=== PATIENT | female | born 1950 | race Caucasian/White ===

== ENCOUNTER 2022-01-09 03:06 | Inpatient (IN) | payer MEDICARE ==
--- NOTE | 2022-01-09 03:35 | ED ---
Chest Pain HPI - General Chief Complaint: Cardiac Arrest/CPR Stated Complaint: Cardiac Time Seen by Provider: 01/09/22 03:17 Source: patient, RN/MD, EMS, RN notes reviewed Mode of arrival: EMS - History of Present Illness Initial Comments: This patient is 71-year-old woman who arrives is transferred here from [facility]. The patient had gone there to have evaluation of pain in the chest radiating to her left neck and her back. The pain had started around 7 PM. While the patient was being evaluated at the other hospital she was noted to have what appeared to be a junctional bradycardia. The patient transferred here to have further cardiac rule out and cardiology evaluation. When I interview the patient, the pain has decreased. She is not having any associated symptoms. No dyspnea, diaphoresis, nausea or vomiting, palpitations, lightheadedness or syncope. There was some initial mild shortness of breath that has resolved. MD Complaint: chest pain Onset/Timin -: hour(s) Onset: during rest Pain Location: substernal Pain Radiation: neck Severity: moderate Quality: aching, heaviness Consistency: constant Improves With: nothing Worsens With: nothing - Related Data Home Medications Medication Instructions Recorded Confirmed Calcium/Magnesium(Unknown) 1 tab PO DAILY 01/09/22 01/09/22 Cholecalciferol [Vitamin D3 (25 50 mcg PO DAILY 01/09/22 01/09/22 Mcg = 1000 Iu)] Gabapentin 600 mg PO TID 01/09/22 01/09/22 Losartan Potassium 100 mg PO DAILY 01/09/22 01/09/22 Omeprazole 40 mg PO DAILY 01/09/22 01/09/22 Simvastatin [Zocor] 40 mg PO HS@202901/09/22 01/09/22 Spironolactone [Aldactone] 75 mg PO DAILY 01/09/22 01/09/22 Zolpidem [Ambien] 10 mg PO HS 01/09/22 01/09/22 hydroCHLOROthiazide [Hydrodiuril] 25 mg PO Q48H 01/09/22 01/09/22 Allergies Allergy/AdvReac Type Severity Reaction Status Date / Time hydrocodone [From [place]] Allergy Anaphylaxis Verified 01/09/22 07:28 & Rash/Hives meloxicam Allergy Anaphylaxis Verified 01/09/22 07:28 & Rash/Hives Review of Systems ROS Statement: Those systems with pertinent positive or pertinent negative responses have been documented in the HPI. ROS Other: All systems not noted in ROS Statement are negative. Constitutional: Denies: fever, chills Respiratory: Reports: dyspnea. Denies: cough Cardiovascular: Reports: chest pain. Denies: palpitations, edema, syncope Gastrointestinal: Denies: abdominal pain, nausea, vomiting Genitourinary: Denies: dysuria, hematuria Musculoskeletal: Denies: back pain Skin: Denies: rash Neurological: Denies: headache, weakness EKG Findings - EKG Comments: EKG Findings:: ECG as interpreted as possibly atrial fibrillation with slow response, it may be a junctional rhythm with a small amount of variability. - EKG Results: EKG: interpreted by ERMD, normal ST/T EKG shows: bradycardia (Rate 44 bpm), atrial fibrillation - Blocks, [place], Hypertrophy, ST Abn: AV and intraventricular conduction: right bundle branch block (fixed /intermittent, complete/incomplete) (Incomplete) Past Medical History Past Medical History: Diabetes Mellitus, GERD/Reflux, Hyperlipidemia, Hypertension History of Any Multi-Drug Resistant Organisms: None Reported Past Surgical History: No Surgical Hx Reported Past Psychological History: Anxiety Smoking Status: Current every day smoker Past Alcohol Use History: Occasional, Rare Past Drug Use History: None Reported General Exam General appearance: alert, in no apparent distress Head exam: Present: atraumatic, normocephalic Eye exam: Present: normal appearance. Absent: scleral icterus, conjunctival injection Neck exam: Present: normal inspection, full ROM Respiratory exam: Present: normal lung sounds bilaterally. Absent: respiratory distress, wheezes, rales, rhonchi, stridor, accessory muscle use Cardiovascular Exam: Present: normal rhythm, bradycardia, normal heart sounds. Absent: systolic murmur, diastolic murmur, rubs, gallop GI/Abdominal exam: Present: soft. Absent: distended, tenderness, guarding, rebound, mass, pulsatile mass Extremities exam: Present: normal inspection, normal capillary refill. Absent: pedal edema, calf tenderness Back exam: Present: normal inspection. Absent: CVA tenderness (R), CVA tenderness (L) Neurological exam: Present: alert Skin exam: Present: warm, dry, intact, normal color. Absent: rash Course Vital Signs 01/09/22 01/09/22 01/09/22 03:10 03:18 04:00 Temperature 97.6 F Pulse Rate 46 L 42 L Pulse Rate [ 46 L Loading Supervisor ] Respiratory 16 16 Rate Blood Pressure 94/74 92/51 O2 Sat by Pulse 96 95 Oximetry 01/09/22 01/09/22 01/09/22 05:24 05:30 05:45 Temperature Pulse Rate 46 L 41 L 41 L Pulse Rate [ Loading Supervisor ] Respiratory 18 18 18 Rate Blood Pressure 79/44 81/42 91/56 O2 Sat by Pulse 96 Oximetry 01/09/22 01/09/22 01/09/22 06:23 06:31 06:38 Temperature Pulse Rate 48 L 41 L Pulse Rate [ Loading Supervisor ] Respiratory 19 20 20 Rate Blood Pressure 95/62 90/70 O2 Sat by Pulse 95 100 Oximetry Disposition Clinical Impression: Chest pain, Bradycardia Disposition: ADMITTED IP TO THIS HOSP Condition: Fair
[2022-01-09 04:06] LABS: Basophils # (A) 0.1 k/uL (0-0.2); Basophils % (A) 1 %; Eosinophils # (A) 0.2 k/uL (0-0.7); Eosinophils % (A) 2 %; HCT 40.6 % (34.0-46.0); HGB 13.1 gm/dL (11.4-16.0); Lymphocytes % (A) 35 %; MCH 30.7 pg (25.0-35.0); MCHC 32.4 g/dL (31.0-37.0); MCV 94.8 fL (80.0-100.0); Mean Platelet Volume 7.8; Monocytes # (A) 0.8 k/uL (0-1.0); Monocytes % (A) 7 %; Neutrophils # (A) 6.3 k/uL (1.3-7.7); Neutrophils % (A) 54 %; Platelet Count 290 k/uL (150-450); RBC 4.28 m/uL (3.80-5.40); RDW 12.5 % (11.5-15.5); WBC 11.7 k/uL (3.8-10.6)
[2022-01-09 04:26] LABS: INR 0.9 (<1.2); Partial Thromboplastin Time 23.4 sec (22.0-30.0); Prothrombin Time 10.4 sec (9.0-12.0)
[2022-01-09 04:45] LABS: ALT 62 U/L (4-34); AST 55 U/L (14-36); African American GFR (CKD) >90 (>60 ml/min/1.73 sqM); Albumin 3.2 g/dL (3.5-5.0); Alkaline Phosphatase 48 U/L (38-126); Anion Gap 3 mmol/L; Blood Urea Nitrogen 27 mg/dL (7-17); Calcium 8.1 mg/dL (8.4-10.2); Carbon Dioxide 23 mmol/L (22-30); Chloride 112 mmol/L (98-107); Glucose 119 mg/dL (74-99); Magnesium 1.9 mg/dL (1.6-2.3); Non-African American GFR(CKD) 83 (>60 ml/min/1.73 sqM); Potassium 4.6 mmol/L (3.5-5.1); Sodium 138 mmol/L (137-145); Total Bilirubin 0.5 mg/dL (0.2-1.3); Total Protein 5.6 g/dL (6.3-8.2)
[2022-01-09] MEDS ORDERED: NITROGLYCERIN SL TABS 0.4 MG TAB SUBLINGUAL PRN (05:15)
[2022-01-09] MEDS ORDERED: SODIUM CHLORIDE 0.9% 1,000 ML IV SCH ×2 (05:15→12:30)
[2022-01-09] MEDS ORDERED: SODIUM CHLORIDE 0.9% 500 ML 500 ML IV STA (05:44)
[2022-01-09] MEDS ORDERED: SODIUM CHLORIDE 0.9% 500 ML 500 ML IV ONE (05:49)
[2022-01-09] MEDS ORDERED: ACETAMINOPHEN TAB 325 MG TAB PO STA (06:15)
--- NOTE | 2022-01-09 08:02 | XR ---
EXAMINATION TYPE: XR chest 1V portable DATE OF EXAM: 01/09/2022 COMPARISON: CTA from outside institution HISTORY: Shortness of breath, chest pain TECHNIQUE: Single frontal view of the chest is obtained. FINDINGS: There is no focal air space opacity, pleural effusion, or pneumothorax seen. The cardiac silhouette size is within normal limits. Right-sided aortic arch is present. The osseous structures are intact. IMPRESSION: No acute process.
[2022-01-09] MEDS ORDERED: CALCIUM PO SCH (09:00)
[2022-01-09] MEDS ORDERED: MAGNESIUM PO SCH (09:00)
[2022-01-09] MEDS: LOSARTAN 50 MG TAB PO SCH (10:12)
[2022-01-09] MEDS: SPIRONOLACTONE 25 MG TAB PO SCH (10:13)
[2022-01-09] MEDS: PANTOPRAZOLE 40 MG TABLET PO SCH (10:34)
[2022-01-09] MEDS: CHOLECALCIFEROL 25 MCG (1000 IU) TABLET PO SCH (10:34)
[2022-01-09] MEDS: GABAPENTIN 300 MG CAP PO SCH ×3 (10:34→20:36)
[2022-01-09] MEDS: ACETAMINOPHEN TAB 325 MG TAB PO PRN ×2 (12:55→19:42)
--- NOTE | 2022-01-09 12:55 | P.CRDCN ---
History of Present Illness History of present illness: HISTORY OF PRESENT ILLNESS: This is a 71-year-old female with a past medical history significant for hypertension, hyperlipidemia, and nicotine dependence. Patient follows in the office with Dr. Rincon. We have been asked to see the patient in consultation for bradycardia. Patient examined at the bedside. Patient states yesterday she was sitting in her living room and she started having some chest pain, neck pain, and dizziness. She got up to go get her in the other room. She reports she then started having some discomfort in her back and broke out into a sweat. She denied any nausea or vomiting. The patient initially went to [facility] and was found to be bradycardic with a heart rate in the 30s and 40s. She was transferred to [facility] for further evaluation. EKG completed upon arrival revealed junctional rhythm with a heart rate in the 40s. Telemetry currently reveals sinus mechanism with a heart rate in the 60s to 70s. The patient was also found to be hypotensive at [facility] with a blood pressure in the 80s. * EKG reveals junctional rhythm * Chest xray negative for acute process * Laboratory data: WBC 11.7. Platelet Count 290. Sodium 138. Potassium 4.6. BUN 27. Creatinine 0.73. Magnesium 1.9. Troponin negative 3. AST 55. ALT 62. * Current home cardiac medications include chlorothiazide 25 mg every 48 hours, Aldactone 75 mg daily, simvastatin 40 mg at night, losartan 100 mg daily * Patient had an echocardiogram performed in April 2021 revealing normal EF, mild TR, mild MR * Patient underwent Lexiscan stress test in August 2021 which was negative for ischemia REVIEW OF SYSTEMS: At the time of my exam: CONSTITUTIONAL: Denies fever or chills. HEENT: Denies blurred vision, vision changes, or eye pain. Denies hemoptysis CARDIOVASCULAR: Denies chest pain. Denies orthopnea. Denies PND. Denies palpitations RESPIRATORY: Denies shortness of breath. GASTROINTESTINAL: Denies abdominal pain. Denies nausea or vomiting. HEMATOLOGIC: Denies bleeding disorders. GENITOURINARY: Denies any blood in urine. SKIN: Denies pruitis. Denies rash. PHYSICAL EXAM: VITAL SIGNS: Reviewed. GENERAL: Well-developed in no acute distress. HEENT: Head is normocephalic. Pupils are equal, round. Sclerae anicteric. Mucous membranes of the mouth are moist. Neck supple. No JVD or thyromegaly LUNGS: Respirations even and unlabored. Lungs essentially clear to auscultation bilaterally. HEART: Regular rate and rhythm. S1 and S2 heard. ABDOMEN: Soft. Nondistended. Nontender. EXTREMITIES: Normal range of motion. No clubbing or cyanosis. Peripheral pulses intact. No lower extremity edema NEUROLOGIC: Awake and alert. Oriented x 3. ASSESSMENT: Chest pain, troponin negative x 3 Junctional rhythm, symptomatic Hypotension Elevated LFTs, suspect secondary to hypoperfusion History of hypertension Hyperlipidemia Nicotine dependence PLAN: Obtain 2-D echo to assess cardiac structure and function Avoid AV carlo blocking agents Continue telemetry monitoring Check TSH Patient will likely require permanent pacemaker insertion. Timing to be determined Further recommendations pending patient course Nurse practitioner note has been reviewed by physician. Signing provider agrees with the documented findings, assessment, and plan of care. Past Medical History Past Medical History: Diabetes Mellitus, GERD/Reflux, Hyperlipidemia, Hyperte nsion History of Any Multi-Drug Resistant Organisms: None Reported Past Surgical History: No Surgical Hx Reported Past Psychological History: Anxiety Smoking Status: Current every day smoker Past Alcohol Use History: Occasional, Rare Past Drug Use History: None Reported - Past Family History Father Family Medical History: Diabetes Mellitus, Myocardial Infarction ([place]) Mother Family Medical History: Renal Disease Medications and Allergies Home Medications Medication Instructions Recorded Confirmed Type Calcium/Magnesium(Unknown) 1 tab PO DAILY 01/09/22 01/09/22 History Cholecalciferol [Vitamin D3 (25 50 mcg PO DAILY 01/09/22 01/09/22 History Mcg = 1000 Iu)] Gabapentin 600 mg PO TID 01/09/22 01/09/22 History Losartan Potassium 100 mg PO DAILY 01/09/22 01/09/22 History Omeprazole 40 mg PO DAILY 01/09/22 01/09/22 History Simvastatin [Zocor] 40 mg PO HS@202901/09/22 01/09/22 History Spironolactone [Aldactone] 75 mg PO DAILY 01/09/22 01/09/22 History Zolpidem [Ambien] 10 mg PO HS 01/09/22 01/09/22 History hydroCHLOROthiazide [Hydrodiuril] 25 mg PO Q48H 01/09/22 01/09/22 History Allergies Allergy/AdvReac Type Severity Reaction Status Date / Time hydrocodone [From [place]] Allergy Anaphylaxis Verified 01/09/22 07:28 & Rash/Hives meloxicam Allergy Anaphylaxis Verified 01/09/22 07:28 & Rash/Hives Physical Exam Vitals: Vital Signs Temp Pulse Pulse Resp BP Pulse Ox 01/09/22 06:38 41 L 20 90/70 100 01/09/22 06:31 20 01/09/22 06:23 48 L 19 95/62 95 01/09/22 05:45 41 L 18 91/56 01/09/22 05:30 41 L 18 81/42 01/09/22 05:24 46 L 18 79/44 96 01/09/22 04:00 42 L 16 92/51 95 01/09/22 03:18 46 L 01/09/22 03:10 97.6 F 46 L 16 94/74 96 Intake and Output 01/08/22 01/09/22 01/09/22 22:59 06:59 14:59 Other: Weight 75.75 kg Results 01/09/22 03:15 01/09/22 03:15 Cardiac Enzymes 01/09/22 01/09/22 01/09/22 Range/Units 03:15 03:15 05:41 AST 55 H (14-36) U/L Troponin I 0.025 0.027 (0.000-0.034) ng/mL Coagulation 01/09/22 Range/Units 03:15 PT 10.4 (9.0-12.0) sec APTT 23.4 (22.0-30.0) sec CBC 01/09/22 Range/Units 03:15 WBC 11.7 H (3.8-10.6) k/uL RBC 4.28 (3.80-5.40) m/uL Hgb 13.1 (11.4-16.0) gm/dL Hct 40.6 (34.0-46.0) % Plt Count 290 (150-450) k/uL Comprehensive Metabolic Panel 01/09/22 Range/Units 03:15 Sodium 138 (137-145) mmol/L Potassium 4.6 (3.5-5.1) mmol/L Chloride 112 H (98-107) mmol/L Carbon Dioxide 23 (22-30) mmol/L BUN 27 H (7-17) mg/dL Creatinine 0.73 (0.52-1.04) mg/dL Glucose 119 H (74-99) mg/dL Calcium 8.1 L (8.4-10.2) mg/dL AST 55 H (14-36) U/L ALT 62 H (4-34) U/L Alkaline Phosphatase 48 (38-126) U/L Total Protein 5.6 L (6.3-8.2) g/dL Albumin 3.2 L (3.5-5.0) g/dL Current Medications Generic Name Dose Route Start Last Admin Trade Name Freq PRN Reason Stop Dose Admin Aspirin 325 mg 01/10/22 09:00 Aspirin 325 Mg Tab PO DAILY EBONY Sodium Chloride 1,000 mls @ 100 mls/hr 01/09/22 05:15 01/09/22 06:25 Saline 0.9% IV 100 mls/hr .Q10H EBONY Administration Nitroglycerin 0.4 mg 01/09/22 05:15 Nitroglycerin Sl Tabs 0.4 Mg Tab SUBLINGUAL Q5M PRN Chest Pain Intake and Output 01/08/22 01/09/22 01/09/22 22:59 06:59 14:59 Other: Weight 75.75 kg 01/09/22 03:15 01/09/22 03:15
[2022-01-09 13:01] LABS: T4, Free (Free Thyroxine) 0.99 ng/dL (0.78-2.19)
[2022-01-09] MEDS: SODIUM CHLORIDE 0.9% 1,000 ML IV SCH (14:57)
[2022-01-09 16:46] LABS: Glucose,Whole Blood 128 mg/dL (75-99)
[2022-01-09 20:21] LABS: Glucose,Whole Blood 137 mg/dL (75-99)
[2022-01-09] MEDS: ATORVASTATIN 20 MG TAB PO SCH (20:36)
[2022-01-09] MEDS ORDERED: ZOLPIDEM 10 MG TAB PO SCH (21:00)
[2022-01-10 06:18] LABS: Glucose,Whole Blood 111 mg/dL (75-99)
[2022-01-10] MEDS: ACETAMINOPHEN TAB 325 MG TAB PO PRN ×2 (06:46→21:02)
[2022-01-10] MEDS: CHOLECALCIFEROL 25 MCG (1000 IU) TABLET PO SCH (06:46)
[2022-01-10] MEDS: GABAPENTIN 300 MG CAP PO SCH ×3 (06:47→21:03)
[2022-01-10] MEDS: PANTOPRAZOLE 40 MG TABLET PO SCH (06:47)
[2022-01-10] MEDS: LOSARTAN 50 MG TAB PO SCH (06:47)
[2022-01-10] MEDS: SPIRONOLACTONE 25 MG TAB PO SCH (06:55)
[2022-01-10] MEDS ORDERED: ceFAZolin 1 GM in SODIUM CHLORIDE 0.9% IRRIG BTL 250 ML IRRIGATION PRN (07:00)
[2022-01-10] MEDS ORDERED: hydroCHLOROthiazide 25 MG TAB PO SCH (09:00)
[2022-01-10] MEDS ORDERED: ASPIRIN 325 MG TAB PO SCH (09:00)
[2022-01-10 09:07] LABS: Chol/HDL Ratio 3.95 Ratio; LDL Cholesterol,Calculated 60.8 mg/dL (0.0-131.0)
[2022-01-10 11:05] LABS: African American GFR (CKD) >90 (>60 ml/min/1.73 sqM); Anion Gap 2 mmol/L; Blood Urea Nitrogen 12 mg/dL (7-17); Calcium 8.9 mg/dL (8.4-10.2); Carbon Dioxide 26 mmol/L (22-30); Chloride 113 mmol/L (98-107); Glucose 94 mg/dL (74-99); Non-African American GFR(CKD) >90 (>60 ml/min/1.73 sqM); Sodium 141 mmol/L (137-145)
[2022-01-10] MEDS ORDERED: IV FLUID CONTINUATION 1,000 ML IV ONE (11:45)
[2022-01-10] MEDS ORDERED: PROPOFOL 10 MG/ML 20 ML VIAL IV ONE (11:56)
[2022-01-10] MEDS ORDERED: fentaNYL (PF) 50 MCG/ML 2 ML AMP ONE (11:56)
[2022-01-10] MEDS ORDERED: MIDAZOLAM 2 MG/2 ML VIAL ONE (11:56)
[2022-01-10] MEDS ORDERED: IOPAMIDOL-370 50ML BTL INJ ONE (12:00)
[2022-01-10] MEDS ORDERED: LIDOCAINE 1% INJ 10MG/ML (20 ML MDV) SQ ONE (12:34)
--- NOTE | 2022-01-10 12:52 | P.PN ---
Subjective Progress Note Date: 01/10/22 The patient is a 71-year-old female who follows with Dr. Colon outpatient in [place]. She presented to her local emergency room after an episode of dizziness with associated chest discomfort and diaphoresis. On arrival to the emergency room she was noted to have a junctional heart rhythm and was hyp otensive. She was reperfused and transferred to [place]. Dr. Galvez had a long discussion with both the patient and her regarding the need for pacemaker implantation. Risks of procedure were explained in detail. No additional questions thereafter. This will be performed later today. The patient is currently resting comfortably in bed. No chest pain or chest pressure. No difficulty breathing. No dizziness or lightheadedness. GENERAL: Well-appearing, well-nourished and in no acute distress. NECK: Supple without JVD or thyromegaly. LUNGS: Breath sounds clear to auscultation bilaterally. Respiration equal and unlabored. No wheezes, rales or rhonchi. HEART: Regular rate and rhythm without murmurs, rubs or gallops. S1 and S2 heard. EXTREMITIES: Normal range of motion, no edema. No clubbing or cyanosis. Peripheral pulses intact and strong. VITALS: Blood pressure 128/71, pulse 76, respiratory rate 18, temp 97.9F, SpO2 95% on room air TELEMETRY: Sinus rhythm LABS: Sodium 141, potassium 4.0, BUN 12, creatinine 0.61, TSH 0.17, triglycerides 185, LDL 60, HDL 33 IMPRESSION: Acute onset of dizziness Junctional rhythm, on EKG and [facility] Hypotension, improved Elevated LFTs History of hypertension Dyslipidemia Current smoker Abnormal TSH at 0.17, T4 0.99 PLAN: Proceed with dual chamber pacemaker implant Further recommendations will be based upon clinical course I am dictating on behalf of Dr Anibal Galvez's history/physical and assessment/plan. Objective - Vital Signs Vital signs: Vital Signs Temp 98.2 F 01/10/22 08:40 Pulse 81 01/10/22 08:40 Resp 16 01/10/22 08:40 BP 132/79 01/10/22 08:40 Pulse Ox 94 L 01/10/22 08:40 Intake & Output 01/09/22 01/10/22 01/10/22 18:59 06:59 18:59 Intake Total 10 Balance 10 Weight 75.75 kg Intake: IV 10 Invasive Line 1 10 Other: Voiding Method Toilet Toilet # Voids 1 - Labs CBC & Chem 7: 01/09/22 03:15 01/10/22 10:44 Labs: Abnormal Lab Results - Last 24 Hours (Table) 01/09/22 01/09/22 01/09/22 Range/Units 03:15 16:44 20:16 POC Glucose (mg/dL) 128 H 137 H (75-99) mg/dL Triglycerides (0.00-149.00) mg/dL HDL Cholesterol (40.00-60.00) mg/dL TSH 0.171 L (0.465-4.680) mIU/L 01/10/22 01/10/22 Range/Units 04:29 06:17 POC Glucose (mg/dL) 111 H (75-99) mg/dL Triglycerides 185.00 H (0.00-149.00) mg/dL HDL Cholesterol 33.20 L (40.00-60.00) mg/dL TSH (0.465-4.680) mIU/L
[2022-01-10] MEDS ORDERED: ACETAMINOPHEN TAB 325 MG TAB PO PRN (14:00)
--- NOTE | 2022-01-10 14:08 | P.EPPROC ---
- EP Procedure Note Electrophysiology Procedure Note: Diagnosis Symptomatic, intermittent junctional rhythm at 40 beats a minute associated with hypotension hypoperfusion No AV node blocking drugs, no transient causes Procedure Dual-chamber pacemaker implantation Left upper extremity venogram Details Patient was brought to the EP lab in a fasting state. Written informed consent was obtained prior to the procedure. Conscious sedation provided by anesthesia team Left upper extremity venogram was performed 10 mL every dye injected in the left arm. Patent left subclavian and axillary veins Plan to proceed with a dual-chamber pacemaker IV antibiotics administered. Local anesthesia administered. A 4 cm incision made in the pectoral area. Subfascial pocket made. Venous access obtained Venous sheaths placed. Leads placed in the right heart Atrial lead position the right atrial appendage. [facility] medical doctor screwed in right atrial appendage P waves 1.7 mV, pacing threshold 1 warted 0.4 ms pacing impedance 650 ohms 10 V test negative RV lead position in the RV septum. Pacing threshold 1 warted 0.4 ms, R waves greater than 12 mV and pacing impedance 650 ohms [address] [facility] medical Dual-chamber pacemaker device connected to the leads and placed in the subfascial pocket Patient tolerance the procedure well without acute complications Programming: DDD, 50 beats a minute, VIP mode to minimize RV pacing Patient tolerated the procedure well without any acute complications
--- NOTE | 2022-01-10 14:24 | CA ---
Transthoracic Echo Report Name: Julia Coleman Age: 71 Gender: F : 1950 Exam Date: 01/09/2022 11:28 Exam Location: [facility] Ht (in): 65 Wt (lb): 167 Ordering Physician: Katty Morales Attending/Referring Phys: [id number], Carmen Safety Trainer Coretta Escobar, JOSE Procedure CPT: Indications: LV function Cardiac Hx: Technical Quality: Fair Contrast 1: Total Dose (mL): Contrast 2: Total Dose (mL): MEASUREMENTS (Male / Female) Normal Values 2D ECHO LV Diastolic Diameter PLAX 4.2 cm 4.2 - 5.9 / 3.9 - 5.3 cm LV Systolic Diameter PLAX 2.2 cm IVS Diastolic Thickness 1.1 cm 0.6 - 1.0 / 0.6 - 0.9 cm LVPW Diastolic Thickness 1.0 cm 0.6 - 1.0 / 0.6 - 0.9 cm LV Relative Wall Thickness 0.5 RV Internal Dim ED PLAX 2.9 cm LA Systolic Diameter LX 3.6 cm 3.0 - 4.0 / 2.7 - 3.8 cm M-MODE Aortic Root Diameter MM 3.0 cm MV E Point Septal Separation 0.6 cm AV Cusp Separation MM 1.7 cm DOPPLER AV Peak Velocity 162.2 cm/s AV Peak Gradient 10.5 mmHg MV Area PHT 3.8 cm Mitral E Point Velocity 113.3 cm/s Mitral A Point Velocity 84.7 cm/s Mitral E to A Ratio 1.3 MV Deceleration Time 197.6 ms FINDINGS Left Ventricle Left ventricular ejection fraction is estimated at 55-60 %. Mildly increased septal wall thickness. Mildly increased posterior wall thickness. Right Ventricle Normal right ventricular size and function. Right Atrium Normal right atrial size. Left Atrium Normal left atrial size. Mitral Valve Trace mitral regurgitation Aortic Valve Trileaflet aortic valve. No aortic valve stenosis or regurgitation. Tricuspid Valve Trace tricuspid regurgitation. Pulmonic Valve Structurally normal pulmonic valve. Pericardium No pericardial effusion. Aorta Normal size aortic root and proximal ascending aorta. CONCLUSIONS Preserved LV size and systolic function. No significant valvular abnormalities noted Previewed by: dia Galvez MD (Electronically Signed) Final Date: 10 January 2022 14:22
[2022-01-10 14:28] LABS: Glucose,Whole Blood 82 mg/dL (75-99)
[2022-01-10] MEDS ORDERED: ACETAMINOPHEN IV (For NPO) 1,000 MG in EMPTY BAG 1 BAG IVPB ONE (15:00)
[2022-01-10 16:24] LABS: Glucose,Whole Blood 127 mg/dL (75-99)
--- NOTE | 2022-01-10 18:28 | XR ---
EXAMINATION TYPE: XR chest 1V portable DATE OF EXAM: 01/10/2022 COMPARISON: 01/09/2022 HISTORY: Chest pain TECHNIQUE: Single view FINDINGS: Heart is normal. Lungs are clear of consolidation. There are no hilar masses. There is left axillary pacemaker. There is possible right-sided aortic arch. There is no pleural effusion. IMPRESSION: No active cardiopulmonary disease. No change.
[2022-01-10] MEDS: SODIUM CHLORIDE 0.9% 1,000 ML IV SCH (18:38)
[2022-01-10 19:42] LABS: Glucose,Whole Blood 126 mg/dL (75-99)
[2022-01-10] MEDS ORDERED: ZOLPIDEM 5 MG TAB PO SCH (21:00)
[2022-01-10] MEDS: ATORVASTATIN 20 MG TAB PO SCH (21:02)
--- NOTE | 2022-01-10 22:15 | P.HPIM ---
History of Present Illness H&P Date: 01/09/22 Chief Complaint: Dizziness Patient is a 71-year-old female with a known history of hypertension, hyperlipidemia, diabetes type 2, anxiety and currently everyday smoker presents to ER due to complaints of dizziness and chest pain. Patient initially presented to [facility]. She was found to be hypotensive with SBP in 80s and also bradycardic. Patient was transferred to [facility] for cardiology evaluation. Patient states that she was sitting in her living room and started having dizziness and chest pain. Patient got up to get her in the other room and reports started having discomfort in her back and broke out into a sweat. Denies any complaints of nausea or vomiting. EKG showed junctional rhythm with heart rate of 40s. Chest x-ray showed no acute cardiopulmonary process. Laboratory data showed WBC 11.7 hemoglobin 13.1 and platelets 290 INR 0.9 Sodium 138 potassium 4.6 chloride 112 bicarb is 23 BUN 27 creatinine 0.73 blood sugar is 119 Calcium 8.1 AST 55 ALT 62 and alk phos 48 troponin x3 negative and TSH 0.171 and free T4 l evel is 0.99 and albumin 3.2 Review of Systems Constitutional: Patient denies any fever or chills . No generalized weakness or weight loss. Abdomen: Patient denied nausea vomiting and diarrhea and abdominal pain. Cardiovascular: Patient denies any chest pain or short of breath no palpitations. Respiratory: patient denied any cough or sputum production. No shortness of breath Neurologic: Patient denied any numbness or tingling headache. Musculoskeletal: Patient denies any complaints of joint swelling or deformity. Skin: Negative Psychiatric: Negative Endocrine: No heat or cold intolerance. No recent weight gain. Genitourinary: No dysuria or hematuria. All other 14 point ROS negative except the above Past Medical History Past Medical History: Diabetes Mellitus, GERD/Reflux, Hyperlipidemia, Hypertension Additional Past Medical History / Comment(s): Occasional low back pain, diveticular disease, benign colon polyp, insomnia, past kidney stone History of Any Multi-Drug Resistant Organisms: None Reported Past Surgical History: No Surgical Hx Reported Additional Past Surgical History / Comment(s): Cardiac cath several years ago/normal, bilateral total knee arthroplasties, colonoscopy/polypectomy, hemorrhoidectomy Past Anesthesia/Blood Transfusion Reactions: No Reported Reaction Past Psychological History: Anxiety Smoking Status: Current every day smoker Past Alcohol Use History: Occasional, Rare Past Drug Use History: None Reported - Past Family History Father Family Medical History: Diabetes Mellitus, Myocardial Infarction ([place]) Mother Family Medical History: Renal Disease Medications and Allergies Home Medications Medication Instructions Recorded Confirmed Type Calcium/Magnesium(Unknown) 1 tab PO DAILY 01/09/22 01/09/22 History Cholecalciferol [Vitamin D3 (25 50 mcg PO DAILY 01/09/22 01/09/22 History Mcg = 1000 Iu)] Gabapentin 600 mg PO TID 01/09/22 01/09/22 History Losartan Potassium 100 mg PO DAILY 01/09/22 01/09/22 History Omeprazole 40 mg PO DAILY 01/09/22 01/09/22 History Simvastatin [Zocor] 40 mg PO HS@202901/09/22 01/09/22 History Spironolactone [Aldactone] 75 mg PO DAILY 01/09/22 01/09/22 History Zolpidem [Ambien] 10 mg PO HS 01/09/22 01/09/22 History hydroCHLOROthiazide [Hydrodiuril] 25 mg PO Q48H 01/09/22 01/09/22 History Allergies Allergy/AdvReac Type Severity Reaction Status Date / Time hydrocodone [From [place]] Allergy Anaphylaxis Verified 01/09/22 07:28 & Rash/Hives meloxicam Allergy Anaphylaxis Verified 01/09/22 07:28 & Rash/Hives Physical Exam Vitals: Vital Signs Temp Pulse Pulse Resp BP BP Pulse Ox 01/10/22 08:40 98.2 F 81 16 132/79 94 L 01/10/22 04:00 97.8 F 89 16 131/69 97 01/10/22 00:00 97.8 F 73 16 104/64 98 01/09/22 20:00 97.9 F 78 18 112/69 95 01/09/22 17:44 74 18 01/09/22 17:33 74 18 110/64 99 01/09/22 15:53 97.6 F 80 16 104/69 96 01/09/22 12:25 75 18 115/65 95 01/09/22 10:36 68 18 114/73 98 Intake and Output 01/09/22 01/10/22 01/10/22 22:59 06:59 14:59 Intake Total 10 Balance 10 Intake: IV 10 Invasive Line 1 10 Other: Voiding Method Toilet Toilet # Voids 1 1 PHYSICAL EXAMINATION: Patient is lying in the bed comfortably, no acute distress, awake alert and oriented.. HEENT: Normocephalic. Neck is supple. Pupils reactive. Nostrils clear. Oral cavity is moist. Neck reveals no JVD, carotid bruits, or thyromegaly. CHEST EXAMINATION: Trachea is central. Symmetrical expansion. Lung huff clear to auscultation and percussion. CARDIAC: Normal S1, S2 with no gallops. No murmurs ABDOMEN: Soft. Bowel sounds normal. No organomegaly. No abdominal bruits. Extremities: reveal no edema. No clubbing or cyanosis Neurologically awake, alert, oriented x3 with well-coordinated movements. No focal deficits noted Skin: No rash or skin lesions. Psychiatric: Cooperative. Nonsuicidal Musculoskeletal: No joint swelling or deformity. Normal range of motion. Results CBC & Chem 7: 01/09/22 03:15 01/10/22 10:44 Labs: Abnormal Lab Results - Last 24 Hours (Table) 01/09/22 01/09/22 01/09/22 Range/Units 03:15 16:44 20:16 POC Glucose (mg/dL) 128 H 137 H (75-99) mg/dL Triglycerides (0.00-149.00) mg/dL HDL Cholesterol (40.00-60.00) mg/dL TSH 0.171 L (0.465-4.680) mIU/L 01/10/22 01/10/22 Range/Units 04:29 06:17 POC Glucose (mg/dL) 111 H (75-99) mg/dL Triglycerides 185.00 H (0.00-149.00) mg/dL HDL Cholesterol 33.20 L (40.00-60.00) mg/dL TSH (0.465-4.680) mIU/L Thrombosis Risk Factor Assmnt - DVT/VTE Prophylaxis DVT/VTE Prophylaxis: Mechanical Prophylaxis ordered - Choose All That Apply Any of the Below Risk Factors Present?: Yes Each Factor Represents 1 point: Obesity (BMI >25) Other Risk Factors: Yes Each Risk Factor Represents 2 Points: Age 61-74 years Other congenital or acquired thrombophilia - If yes, enter type in comment: No Thrombosis Risk Factor Assessment Total Risk Factor Score: 3 Thrombosis Risk Factor Assessment Level: Moderate Risk Assessment and Plan Assessment: Bradycardia with junctional rhythm Dizziness likely secondary to above Chest pain. Ruled out ACS. Hypertension Hyperlipidemia Diabetes type 2 diet controlled Anxiety Current everyday smoker DVT prophylaxis with SCDs Plan: Patient will be current on telemetry monitoring. Avoid AV carlo blocking agents. TSH is low but free T4 within normal limits. Cardiology is planning for pacemaker placement. Smoking cessation has been counseled extensively. Blood pressure improved with IV hydration. Time with Patient: Greater than 30
--- NOTE | 2022-01-10 22:15 | P.PN ---
Subjective Progress Note Date: 01/10/22 Patient is a 71-year-old female with a known history of hypertension, hyperlipidemia, diabetes type 2, anxiety and currently everyday smoker presents to ER due to complaints of dizziness and chest pain. Patient initially presented to [facility]. She was found to be hypotensive with SBP in 80s and also bradycardic. Patient was transferred to [facility] for cardiology evaluation. Patient states that she was sitting in her living room and started having dizziness and chest pain. Patient got up to get her in the other room and reports started having discomfort in her back and broke out into a sweat. Denies any complaints of nausea or vomiting. EKG showed junctional rhythm with heart rate of 40s. Chest x-ray showed no acute cardiopulmonary process. Laboratory data showed WBC 11.7 hemoglobin 13.1 and platelets 290 INR 0.9 Sodium 138 potassium 4.6 chloride 112 bicarb is 23 BUN 27 creatinine 0.73 blood sugar is 119 Calcium 8.1 AST 55 ALT 62 and alk phos 48 troponin x3 negative and TSH 0.171 and free T4 level is 0.99 and albumin 3.2 01/10/2022 Patient is currently resting in bed comfortably. No complaints of chest pain or shortness of breath. Status post dual-chamber pacemaker placement. Postoperative day 0 No nausea vomiting abdominal diarrhea. Blood pressure is 132/79. No complaints of dizziness or lightheadedness. Laboratory data reviewed. Troponin x3 negative. Cardiology is on board. Current medications reviewed. Objective - Vital Signs Vital signs: Vital Signs Temp 97.9 F 01/10/22 11:30 Pulse 82 01/10/22 17:55 Resp 16 01/10/22 14:55 BP 123/78 01/10/22 17:55 Pulse Ox 95 01/10/22 17:55 Intake & Output 01/10/22 01/10/22 01/11/22 06:59 18:59 06:59 Intake Total 10 768 Balance 10 768 Intake: IV 10 650 Invasive Line 1 10 Oral 118 Other: Voiding Method Toilet Toilet # Voids 1 1 - Exam PHYSICAL EXAMINATION: Patient is lying in the bed comfortably, no acute distress, awake alert and oriented.. HEENT: Normocephalic. Neck is supple. Pupils reactive. Nostrils clear. Oral cavity is moist. Neck reveals no JVD, carotid bruits, or thyromegaly. CHEST EXAMINATION: Trachea is central. Symmetrical expansion. Lung huff clear to auscultation and percussion. CARDIAC: Normal S1, S2 with no gallops. No murmurs ABDOMEN: Soft. Bowel sounds normal. No organomegaly. No abdominal bruits. Extremities: reveal no edema. No clubbing or cyanosis Neurologically awake, alert, oriented x3 with well-coordinated movements. No focal deficits noted Skin: No rash or skin lesions. Psychiatric: Cooperative. Nonsuicidal Musculoskeletal: No joint swelling or deformity. Normal range of motion. - Labs CBC & Chem 7: 01/09/22 03:15 01/10/22 10:44 Labs: Abnormal Lab Results - Last 24 Hours (Table) 01/10/22 01/10/22 01/10/22 Range/Units 04:29 06:17 10:44 Chloride 113 H (98-107) mmol/L POC Glucose (mg/dL) 111 H (75-99) mg/dL Triglycerides 185.00 H (0.00-149.00) mg/dL HDL Cholesterol 33.20 L (40.00-60.00) mg/dL 01/10/22 01/10/22 Range/Units 16:22 19:40 Chloride (98-107) mmol/L POC Glucose (mg/dL) 127 H 126 H (75-99) mg/dL Triglycerides (0.00-149.00) mg/dL HDL Cholesterol (40.00-60.00) mg/dL Assessment and Plan Assessment: Bradycardia with junctional rhythm Dizziness and hypotension likely secondary to above Chest pain. Ruled out ACS. Hypertension Hyperlipidemia Diabetes type 2 diet controlled Anxiety Current everyday smoker DVT prophylaxis with SCDs Plan: Patient will be current on telemetry monitoring. Avoid AV carlo blocking agents. TSH is low but free T4 within normal limits. s/p pacemaker placement. Smoking cessation has been counseled extensively. Blood pressure improved with IV hydration. Time with Patient: Greater than 30
[2022-01-11 06:30] LABS: Glucose,Whole Blood 97 mg/dL (75-99)
[2022-01-11 07:48] LABS: Basophils # (A) 0.1 k/uL (0-0.2); Basophils % (A) 1 %; Eosinophils # (A) 0.2 k/uL (0-0.7); Eosinophils % (A) 2 %; HCT 39.8 % (34.0-46.0); HGB 13.2 gm/dL (11.4-16.0); Lymphocytes % (A) 20 %; MCH 31.1 pg (25.0-35.0); MCHC 33.1 g/dL (31.0-37.0); MCV 94.1 fL (80.0-100.0); Mean Platelet Volume 7.3; Monocytes # (A) 0.7 k/uL (0-1.0); Monocytes % (A) 7 %; Neutrophils # (A) 6.9 k/uL (1.3-7.7); Neutrophils % (A) 68 %; Platelet Count 262 k/uL (150-450); RBC 4.23 m/uL (3.80-5.40); RDW 12.3 % (11.5-15.5); WBC 10.1 k/uL (3.8-10.6)
[2022-01-11 07:57] LABS: African American GFR (CKD) >90 (>60 ml/min/1.73 sqM); Anion Gap 3 mmol/L; Blood Urea Nitrogen 13 mg/dL (7-17); Calcium 8.6 mg/dL (8.4-10.2); Carbon Dioxide 27 mmol/L (22-30); Chloride 110 mmol/L (98-107); Glucose 127 mg/dL (74-99); Non-African American GFR(CKD) 89 (>60 ml/min/1.73 sqM); Potassium 3.9 mmol/L (3.5-5.1); Sodium 140 mmol/L (137-145)
[2022-01-11] MEDS: LOSARTAN 50 MG TAB PO SCH (09:29)
[2022-01-11] MEDS: SPIRONOLACTONE 25 MG TAB PO SCH (09:29)
[2022-01-11] MEDS: ACETAMINOPHEN TAB 325 MG TAB PO PRN (09:29)
[2022-01-11] MEDS: CHOLECALCIFEROL 25 MCG (1000 IU) TABLET PO SCH (09:30)
[2022-01-11] MEDS: GABAPENTIN 300 MG CAP PO SCH (09:30)
[2022-01-11] MEDS: PANTOPRAZOLE 40 MG TABLET PO SCH (09:31)
[2022-01-11 12:03] VITALS: BP 132/79; PULSE 72; RESP 16; TEMP 98.3
[2022-01-11 12:10] LABS: Glucose,Whole Blood 91 mg/dL (75-99)
--- NOTE | 2022-01-11 12:24 | P.PN ---
Subjective Progress Note Date: 01/11/22 The patient is a 71-year-old female who follows with Dr. Colon outpatient in [place]. She presented to her local emergency room after an episode of dizziness with associated chest discomfort and diaphoresis. On arrival to the emergency room she was noted to have a junctional heart rhythm and was hyp otensive. She was reperfused and transferred to [facility]. The patient underwent dual-chamber pacemaker implantation on 01/10/2022. Device interrogation showed good lead measurements. The patient was interviewed and examined lying comfortably in bed. She states she tolerated her procedure well. She states she did have some nausea yesterday, however it has resolved this morning. No chest pain or chest pressure. No difficulty breathing. No dizziness or lightheadedness. GENERAL: Well-appearing, well-nourished and in no acute distress. NECK: Supple without JVD or thyromegaly. LUNGS: Breath sounds clear to auscultation bilaterally. Respiration equal and unlabored. No wheezes, rales or rhonchi. HEART: Regular rate and rhythm without murmurs, rubs or gallops. S1 and S2 heard. EXTREMITIES: Normal range of motion, no edema. No clubbing or cyanosis. Peripheral pulses intact and strong. PACEMAKER SITE: Dressing is dry and intact. Small shadowing, less than a centimeter, noted. VITALS: Blood pressure 132/78, pulse 84, respiratory rate 18, temp 98.7F, SpO2 94% on room air TELEMETRY: Sinus rhythm LABS: WBC 10.1, hemoglobin 13.2, hematocrit 39.8, platelet 262, sodium 140, potassium 3.9, BUN 13, creatinine 0.66 IMPRESSION: Acute onset of dizziness Junctional rhythm Status post dual-chamber pacemaker Hypotension, improved Elevated LFTs History of hypertension Dyslipidemia Current smoker Abnormal TSH at 0.17, T4 0.99 PLAN: Lifting restrictions discussed in detail with the patient and her Patient may be discharged on the cardiac standpoint Follow-up in device clinic in one week Follow-up with primary needle loom setter Dr. Colon in 2-3 weeks I am dictating on behalf of Dr Anibal Galvez's history/physical and assessment/plan. Objective - Vital Signs Vital signs: Vital Signs Temp 98.7 F 01/11/22 09:25 Pulse 84 01/11/22 09:25 Resp 18 01/11/22 09:25 BP 132/78 01/11/22 09:25 Pulse Ox 94 L 01/11/22 09:25 Intake & Output 01/10/22 01/11/22 01/11/22 18:59 06:59 18:59 Intake Total 768 150 Balance 768 150 Intake: IV 650 Oral 118 150 Other: Voiding Method Toilet Toilet # Voids 1 2 - Labs CBC & Chem 7: 01/11/22 07:36 01/11/22 07:36 Labs: Abnormal Lab Results - Last 24 Hours (Table) 01/10/22 01/10/22 01/10/22 Range/Units 10:44 16:22 19:40 Chloride 113 H (98-107) mmol/L Glucose (74-99) mg/dL POC Glucose (mg/dL) 127 H 126 H (75-99) mg/dL 01/11/22 Range/Units 07:36 Chloride 110 H (98-107) mmol/L Glucose 127 H (74-99) mg/dL POC Glucose (mg/dL) (75-99) mg/dL
== END 2022-01-11 14:09 | disposition home or self-care (01) | DRG 244 ==
LOC: EC 03:06 → 3SCARD 05:16
PROVIDERS: ADMIT Family Medicine; ATTEND Family Medicine
PROC: 02H63JZ Insertion of Pacemaker Lead into Right Atrium, Percutaneous Approach (ICD-10-PCS; 2022-01-10)
PROC: 02HK3JZ Insertion of Pacemaker Lead into Right Ventricle, Percutaneous Approach (ICD-10-PCS; 2022-01-10)
PROC: 0JH606Z Insertion of Pacemaker, Dual Chamber into Chest Subcutaneous Tissue and Fascia, Open Approach (ICD-10-PCS; principal; 2022-01-10 12:00)
DX: R00.1 Bradycardia, unspecified (principal); I10 Essential (primary) hypertension; E78.5 Hyperlipidemia, unspecified; E11.9 Type 2 diabetes mellitus without complications; F41.9 Anxiety disorder, unspecified; G47.00 Insomnia, unspecified; Z96.653 Presence of artificial knee joint, bilateral; F17.200 Nicotine dependence, unspecified, uncomplicated; Z79.899 Other long term (current) drug therapy; Z87.19 Personal history of other diseases of the digestive system; Z86.010 Personal history of colon polyps; Z87.442 Personal history of urinary calculi; Z95.0 Presence of cardiac pacemaker; Z88.5 Allergy status to narcotic agent; Z88.8 Allergy status to other drugs, medicaments and biological substances; Z83.3 Family history of diabetes mellitus; Z82.49 Family history of ischemic heart disease and other diseases of the circulatory system
CPT/HCPCS: 33208; 36415; 71045; 80048; 80053; 80061; 83735; 84439; 84443; 84484; 85025; 85610; 85730; 93005; 93306; 96360; 96361; 99285

== ENCOUNTER 2025-01-22 00:48 | Observation (INO) | payer MEDICARE ==
--- NOTE | 2025-01-22 00:59 | ED ---
Recheck HPI - General Stated Complaint: SBO Time Seen by Provider: 01/22/25 00:58 Source: RN notes reviewed, old records reviewed Mode of arrival: ambulatory Limitations: no limitations - History of Present Illness Initial Comments: This is a 74 female she presents today for evaluation regards to small bowel obstruction transferred to our facility for small bowel obstruction found at outside facility history of both hysterectomy and gallbladder surgery MD Complaint: other (Recent pain with small bowel obstruction) -: hour(s) Returns Today for: persistent/worsening pain related to initial visit Symptoms Since Prior Visit: worsening pain Associated Symptoms: none Treatments Prior to Arrival: Given Pain Meds on - Related Data Home Medications Medication Instructions Recorded Confirmed Calcium/Magnesium(Unknown) 1 tab PO DAILY 01/09/22 01/22/25 Cholecalciferol [Vitamin D3 (25 50 mcg PO DAILY 01/09/22 01/22/25 Mcg = 1000 Iu)] Omeprazole 40 mg PO DAILY 01/09/22 01/22/25 Simvastatin [Zocor] 40 mg PO HS 01/09/22 01/22/25 Zolpidem [Ambien] 10 mg PO HS 01/09/22 01/22/25 Alendronate Sodium [Fosamax] 70 mg PO GRISSOM 01/22/25 01/22/25 Cyanocobalamin (Vitamin B-12) 1,000 mcg PO DAILY 01/22/25 01/22/25 [Vitamin B-12] Gabapentin [Neurontin] 300 mg PO Q4H 01/22/25 01/22/25 Allergies Allergy/AdvReac Type Severity Reaction Status Date / Time hydrocodone [From [place]] Allergy Anaphylaxis Verified 01/22/25 07:08 & Rash/Hives meloxicam Allergy Anaphylaxis Verified 01/22/25 07:08 & Rash/Hives Review of Systems ROS Statement: Those systems with pertinent positive or pertinent negative responses have been documented in the HPI. ROS Other: All systems not noted in ROS Statement are negative. Past Medical History Past Medical History: Diabetes Mellitus, GERD/Reflux, Hyperlipidemia, Hypertension Additional Past Medical History / Comment(s): Occasional low back pain, diveticular disease, benign colon polyp, insomnia, past kidney stone History of Any Multi-Drug Resistant Organisms: None Reported Past Surgical History: No Surgical Hx Reported Additional Past Surgical History / Comment(s): Cardiac cath several years ago/normal, bilateral total knee arthroplasties, colonoscopy/polypectomy, hemorrhoidectomy Past Anesthesia/Blood Transfusion Reactions: No Reported Reaction Past Psychological History: Anxiety Smoking Status: Current every day smoker Past Alcohol Use History: Occasional, Rare Past Drug Use History: None Reported - Past Family History Father Family Medical History: Diabetes Mellitus, Myocardial Infarction ([place]) Mother Family Medical History: Renal Disease Course Vital Signs 01/22/25 01/22/25 00:50 06:05 Temperature 98.0 F 97.9 F Pulse Rate 64 72 Respiratory 17 17 Rate Blood Pressure 130/65 129/80 O2 Sat by Pulse 92 L 92 L Oximetry - Reevaluation(s) Reevaluation #1: 01/22/25 01:[address] scan outside facility shows small bowel obstruction Reevaluation #2: 01/22/25 01:47 Patient's pain is currently controlled Reevaluation #3: 01/22/25 01:47 Patient informed of results questions answered Reevaluation #4: Was pt. sent in by a medical professional or institution (, PA, VENE[employer] CLIPPER, urgent care, hospital, or custodial...) When possible be specific @ -no Did you speak to anyone other than the patient for history (EMS, parent, family, police, friend...)? What history was obtained from this source @ -no Did you review nursing and triage notes (agree or disagree)? Why? @ -agree Are old charts reviewed (outside hosp., previous admission, EMS record, old EKG, old radiological studies, urgent care reports/EKG's, custodial records)? Report findings @ -yes Differential Diagnosis (chest pain, altered mental status, abdominal pain women, abdominal pain men, vaginal bleeding, weakness, fever, dyspnea, syncope, headache, dizziness, GI bleed, back pain, seizure, CVA, palpatations, mental health, musculoskeletal)? @ -prior EKG interpreted by me (3pts min.). @ -no X-rays interpreted by me (1pt min.). @ -no CT interpreted by me (1pt min.). @ -no U/S interpreted by me (1pt. min.). @ -no What testing was considered but not performed or refused? (CT, X-rays, U/S, labs)? Why? @ -none What meds were considered but not given or refused? Why? @ -none Did you discuss the management of the patient with other professionals (professionals i.e. , PA, [employer] CLIPPER, lab, RT, psych nurse, child welfare social worker, private equity associate, teacher, cavalry officer, director of casework department)? Give summary @ -no Was smoking cessation discussed for >3mins.? @ -no Was critical care preformed (if so, how long)? @ -no Were there social determinants of health that impacted care today? How? ( Homelessness, low income, unemployed, alcoholism, drug addiction, transportation, low edu. Level, literacy, decrease access to med. care, assisted, rehab)? @ -none Was there de-escalation of care discussed even if they declined (Discuss DNR or withdrawal of care, Hospice)? DNR status @ -no What co-morbidities impacted this encounter? (DM, HTN, Smoking, COPD, CAD, Cancer, CVA, ARF, Chemo, Hep., AIDS, mental health diagnosis, sleep apnea, morbid obesity)? @ -none Was patient admitted / discharged? Hospital course, mention meds given and route, prescriptions, significant lab abnormalities, going to OR and other pertinent info. @ - 74 female will be admitted for small bowel obstruction Admitted Undiagnosed new problem with uncertain prognosis? @ -no Drug Therapy requiring intensive monitoring for toxicity (Heparin, Nitro, Insulin, Cardizem)? @ -no Were any procedures done? @ -no Diagnosis/symptom? @ -small bowel obstruction Acute, or Chronic, or Acute on Chronic? @ -Acute Uncomplicated (without systemic symptoms) or Complicated (systemic symptoms)? @ -Complicated Side effects of treatment? @ -no Exacerbation, Progression, or Severe Exacerbation? @ -exacerbation Poses a threat to life or bodily function? How? (Chest pain, [place], [place], pneumonia, PE, COPD, DKA, ARF, appy, cholecystitis, CVA, Diverticulitis, Homicidal, Suicidal, threat to staff... and all critical care pts) @ -yes extremes of age Reevaluation #5: Differential Abdominal Pain Women: Appendicitis, Cholecystitis, diverticulosis, ischemic bowel, pancreatitis, hepatitis, UTI, gastroenteritis, AAA, incarcerated hernia, bowel obstruction, constipation, inflammatory bowel, hepatitis, peptic ulcer disease, splenic infarction, perforated viscus, vulvitis, ovarian torsion, PID, kidney stone, placenta abruption, this is not meant to be an all-inclusive list - Consultations Consultation #1: Spoke with [facility] who agrees to admit this patient Medical Decision Making - Medical Decision Making 74 female will be admitted for small bowel obstruction - Lab Data Result diagrams: 01/23/25 03:08 01/23/25 03:08 - Radiology Data Radiology results: report reviewed (CT abdomen pelvis is positive for small bowel obstruction) Disposition Clinical Impression: Abdominal pain, Small bowel obstruction Disposition: ADMITTED IP TO THIS [facility] Condition: Fair Is patient prescribed a controlled substance at d/c from ED?: No Time of Disposition: 01:40
[2025-01-22] MEDS ORDERED: NALOXONE 0.4 MG/ML 1 ML VIAL IV PRN (01:37)
[2025-01-22] MEDS: SODIUM CHLORIDE 0.9% 1,000 ML IV SCH (01:50)
[2025-01-22] MEDS: HYDROmorphone 1 MG/ML 1 ML SYRINGE IVP STA (01:51)
[2025-01-22] MEDS: HYDROmorphone 1 MG/ML 1 ML SYRINGE IVP PRN (06:09)
[2025-01-22] MEDS: ONDANSETRON 4 MG/2 ML VIAL IVP PRN (06:10)
[2025-01-22] MEDS: PANTOPRAZOLE 40 MG/10 ML VIAL IV SCH (08:06)
[2025-01-22 09:16] LABS: Basophils # (A) 0.08 10*3/uL (0.00-0.10); Basophils % (A) 0.6 %; Eosinophils # (A) 0.11 10*3/uL (0.04-0.35); Eosinophils % (A) 0.9 %; HCT 44.1 % (37.2-46.3); HGB 14.4 g/dL (12.0-15.0); Lymphocytes # (A) 2.88 10*3/uL (0.90-5.00); Lymphocytes % (A) 22.7 %; MCHC 32.7 g/dL (32.0-37.0); Monocytes # (A) 1.37 10*3/uL (0.20-1.00); Monocytes % (A) 10.8 %; Neutrophils # (A) 8.18 10*3/uL (1.80-7.70); Neutrophils % (A) 64.7 %; Platelet Count 287 10*3/uL (140-440); RBC 4.64 10*6/uL (4.10-5.20); RDW 12.9 % (11.5-14.5); WBC 12.66 10*3/uL (4.50-10.00)
[2025-01-22 09:27] LABS: African American GFR (CKD) >90 (>60 ml/min/1.73 sqM); Anion Gap 4 mmol/L; Blood Urea Nitrogen 25 mg/dL (7-17); Calcium 9.7 mg/dL (8.4-10.2); Carbon Dioxide 32 mmol/L (22-30); Chloride 103 mmol/L (98-107); Glucose 120 mg/dL (74-99); Non-African American GFR(CKD) 85 (>60 ml/min/1.73 sqM); Potassium 4.1 mmol/L (3.5-5.1); Sodium 139 mmol/L (137-145)
[2025-01-22] MEDS: ACETAMINOPHEN TAB 325 MG TAB PO PRN (11:39)
--- NOTE | 2025-01-22 12:41 | P.GSCN ---
History of Present Illness Consult date: 01/22/25 History of present illness: CHIEF COMPLAINT: Abdominal pain HISTORY OF PRESENT ILLNESS: This is a 74-year-old female who presented to the hospital with complaints of abdominal pain after eating meatballs for dinner yesterday. Patient reports the pain was mostly on the right side but also had diffuse discomfort. She went to [place] for evaluation. She had a CT scan at [place] that had reported a partial small bowel obstruction with transition point in the right lower quadrant. Patient was transferred to [facility] for surgical evaluation. Patient reports no prior history of bowel obstruction. She reports her last bowel movement was yesterday morning and was normal. She did have episode of vomiting in the ER but since then has resolved. She reports her abdominal pain has improved. She is passing a small amount of flatus. She does have a past surgical history of hysterectomy, cholecystectomy and appendectomy. She reports her last colonoscopy was about 2 months ago and it had reported IBS and possibly colon polyps. Surgical service consulted in regards to the partial small bowel obstruction. Patient's main complaint as of now is headache. PAST MEDICAL HISTORY: Diabetes Mellitus, GERD/Reflux, Hyperlipidemia, Hypertension, Occasional low back pain, diveticular disease, benign colon polyp, insomnia, past kidney stone PAST SURGICAL HISTORY: See below MEDICATIONS: See below ALLERGIES: See below SOCIAL HISTORY: No illicit drug use. REVIEW OF SYSTEMS: CONSTITUTIONAL: Denies fever or chills. HEENT: Denies blurred vision, vision changes, or eye pain. Denies hemoptysis CARDIOVASCULAR: Denies chest pain or pressure. RESPIRATORY: No shortness of breath. GASTROINTESTINAL: See HPI for pertinent findings HEMATOLOGIC: Denies bleeding disorders. GENITOURINARY: Denies any blood in urine or increased urinary frequency. SKIN: Denies pruitis. Denies rash. PHYSICAL EXAM: VITAL SIGNS: Reviewed GENERAL: Well-developed in no acute distress. HEENT: No sclera icterus. Extraocular movements grossly intact. Moist buccal mucosa. Head is atraumatic, normocephalic. No nasal drainage. ABDOMEN: Soft. Nondistended. Nontender. No rebound or guarding noted. Old lower midline scar NEUROLOGIC: Alert and oriented. Cranial nerves II through XII grossly intact. LABORATORY DATA: WBC is 12.6 Hgb 14.4 platelets 287 Sodium 139 potassium 4.1 creatinine 0.70 IMAGING: CT scan from [place] reports partial small bowel obstruction with transition point in the right lower quadrant. No evidence of portal venous gas or pneumatosis. Nonobstructive right renal calculi. 11 mm left adrenal nodule. Prior cholecystectomy. Prior hysterectomy. ASSESSMENT: 1. Partial small bowel obstruction with transition point in the right lower quadrant noted on CT 2. Prior history of abdominal surgeries PLAN: - Partial small bowel obstruction resolving. Patient is having flatus. Abdominal pain has resolved. Advance diet to clear liquids. Okay for coffee - Encourage patient to increase activity level - Continue to observe - Repeat labs in a.m. Physician Learning Engineer note has been reviewed by physician. Signing provider agrees with the documented findings, assessment, and plan of care. Past Medical History Past Medical History: Diabetes Mellitus, GERD/Reflux, Hyperlipidemia, Hypertension Additional Past Medical History / Comment(s): Occasional low back pain, diveticular disease, benign colon polyp, insomnia, past kidney stone History of Any Multi-Drug Resistant Organisms: None Reported Past Surgical History: No Surgical Hx Reported Additional Past Surgical History / Comment(s): Cardiac cath several years ago/normal, bilateral total knee arthroplasties, colonoscopy/polypectomy, hemorrhoidectomy Past Anesthesia/Blood Transfusion Reactions: No Reported Reaction Past Psychological History: Anxiety Additional Psychological History / Comment(s): Pt resides with her spouse. She is independent. Smoking Status: Current every day smoker Past Alcohol Use History: Occasional, Rare Additional Past Alcohol Use History / Comment(s): Pt started smoking in 1965. She did quit during her pregnancies. Past Drug Use History: None Reported - Past Family History Father Family Medical History: Diabetes Mellitus, Myocardial Infarction ([place]) Mother Family Medical History: Renal Disease Medications and Allergies Home Medications Medication Instructions Recorded Confirmed Type Calcium/Magnesium(Unknown) 1 tab PO DAILY 01/09/22 01/22/25 History Cholecalciferol [Vitamin D3 (25 50 mcg PO DAILY 01/09/22 01/22/25 History Mcg = 1000 Iu)] Omeprazole 40 mg PO DAILY 01/09/22 01/22/25 History Simvastatin [Zocor] 40 mg PO HS 01/09/22 01/22/25 History Zolpidem [Ambien] 10 mg PO HS 01/09/22 01/22/25 History hydroCHLOROthiazide [Hydrodiuril] 25 mg PO Q48H 01/09/22 01/22/25 History Alendronate Sodium [Fosamax] 70 mg PO GRISSOM 01/22/25 01/22/25 History Cyanocobalamin (Vitamin B-12) 1,000 mcg PO DAILY 01/22/25 01/22/25 History [Vitamin B-12] Gabapentin [Neurontin] 300 mg PO Q4H 01/22/25 01/22/25 History Allergies Allergy/AdvReac Type Severity Reaction Status Date / Time hydrocodone [From [place]] Allergy Anaphylaxis Verified 01/22/25 07:08 & Rash/Hives meloxicam Allergy Anaphylaxis Verified 01/22/25 07:08 & Rash/Hives Surgical - Exam Osteopathic Statement: *. No significant issues noted on an osteopathic struc tural exam other than those noted in the History and Physical/Consult. Vital Signs Temp Pulse Resp BP Pulse Ox 98.0 F 64 17 130/65 92 L 01/22/25 00:50 01/22/25 00:50 01/22/25 00:50 01/22/25 00:50 01/22/25 00:50 Results - Labs 01/22/25 08:52 01/22/25 08:52 Abnormal Lab Results - Last 24 Hours (Table) 01/22/25 01/22/25 Range/Units 08:52 08:52 WBC 12.66 H (4.50-10.00) 10*3/uL Neutrophils # 8.18 H (1.80-7.70) 10*3/uL Monocytes # 1.37 H (0.20-1.00) 10*3/uL Carbon Dioxide 32 H (22-30) mmol/L BUN 25 H (7-17) mg/dL Glucose 120 H (74-99) mg/dL Diabetes panel 01/22/25 Range/Units 08:52 Sodium 139 (137-145) mmol/L Potassium 4.1 (3.5-5.1) mmol/L Chloride 103 (98-107) mmol/L Carbon Dioxide 32 H (22-30) mmol/L BUN 25 H (7-17) mg/dL Creatinine 0.70 (0.52-1.04) mg/dL Glucose 120 H (74-99) mg/dL Calcium 9.7 (8.4-10.2) mg/dL Calcium panel 01/22/25 Range/Units 08:52 Calcium 9.7 (8.4-10.2) mg/dL Pituitary panel 01/22/25 Range/Units 08:52 Sodium 139 (137-145) mmol/L Potassium 4.1 (3.5-5.1) mmol/L Chloride 103 (98-107) mmol/L Carbon Dioxide 32 H (22-30) mmol/L BUN 25 H (7-17) mg/dL Creatinine 0.70 (0.52-1.04) mg/dL Glucose 120 H (74-99) mg/dL Calcium 9.7 (8.4-10.2) mg/dL Adrenal panel 01/22/25 Range/Units 08:52 Sodium 139 (137-145) mmol/L Potassium 4.1 (3.5-5.1) mmol/L Chloride 103 (98-107) mmol/L Carbon Dioxide 32 H (22-30) mmol/L BUN 25 H (7-17) mg/dL Creatinine 0.70 (0.52-1.04) mg/dL Glucose 120 H (74-99) mg/dL Calcium 9.7 (8.4-10.2) mg/dL Assessment and Plan Assessment: resolving sbo high risk of bowel obstruction 2/2 adhesive disease -advanced to clears to today -will likely advance to regular diet Time with Patient: Less than 30
--- NOTE | 2025-01-22 12:53 | P.HPIM ---
History of Present Illness 69-year-old female came in with complaints of abdominal pain was transferred from [facility] for small bowel obstruction which was evident on the CT scan with transition point in the right lower quadrant. Patient presently is doing well passing gas patient was started on liquid diet patient is receiving IV fluids at 75 cc/h blood pressure is low normal. REVIEW OF SYSTEMS: All other systems are negative except those mentioned in the HPI PHYSICAL EXAMINATION: GENERAL: The patient is alert and oriented x3, not in any acute distress. Well developed, well nourished. HEENT: Pupils are round and equally reacting to light. EOMI. No scleral icterus. No conjunctival pallor. Normocephalic, atraumatic. No pharyngeal erythema. No thyromegaly. CARDIOVASCULAR: S1 and S2 present. No murmurs, rubs, or gallops. PULMONARY: Chest is clear to auscultation, no wheezing or crackles. ABDOMEN: Soft, nontender, nondistended, normoactive bowel sounds. No palpable organomegaly. MUSCULOSKELETAL: No joint swelling or deformity. EXTREMITIES: No cyanosis, clubbing, or pedal edema. NEUROLOGICAL: Gross neurological examination did not reveal any focal deficits. SKIN: No rashes. Assessment and plan -Partial small bowel obstruction improving at this time patient is started on liquid diet and diet will be advanced to continue with IV fluids will repeat electrolytes and CBC tomorrow - Hypertension patient blood pressure is low normal hold of hydrochlorothiazide patient is also receiving IV fluids at this time. - Leukocytosis reactive secondary to partial small bowel obstruction - Hyperlipidemia continue with simvastatin - Peripheral neuropathy for which the patient is on gabapentin which will be continued DVT prophylaxis: Early ambulation asked Past Medical History Past Medical History: Diabetes Mellitus, GERD/Reflux, Hyperlipidemia, Hypertension Additional Past Medical History / Comment(s): Occasional low back pain, di veticular disease, benign colon polyp, insomnia, past kidney stone History of Any Multi-Drug Resistant Organisms: None Reported Past Surgical History: No Surgical Hx Reported Additional Past Surgical History / Comment(s): Cardiac cath several years ago/normal, bilateral total knee arthroplasties, colonoscopy/polypectomy, he morrhoidectomy Past Anesthesia/Blood Transfusion Reactions: No Reported Reaction Past Psychological History: Anxiety Additional Psychological History / Comment(s): Pt resides with her spouse. She is independent. Smoking Status: Current every day smoker Past Alcohol Use History: Occasional, Rare Additional Past Alcohol Use History / Comment(s): Pt started smoking in 1965. She did quit during her pregnancies. Past Drug Use History: None Reported - Past Family History Father Family Medical History: Diabetes Mellitus, Myocardial Infarction ([place]) Mother Family Medical History: Renal Disease Medications and Allergies Home Medications Medication Instructions Recorded Confirmed Type Calcium/Magnesium(Unknown) 1 tab PO DAILY 01/09/22 01/22/25 History Cholecalciferol [Vitamin D3 (25 50 mcg PO DAILY 01/09/22 01/22/25 History Mcg = 1000 Iu)] Omeprazole 40 mg PO DAILY 01/09/22 01/22/25 History Simvastatin [Zocor] 40 mg PO HS 01/09/22 01/22/25 History Zolpidem [Ambien] 10 mg PO HS 01/09/22 01/22/25 History hydroCHLOROthiazide [Hydrodiuril] 25 mg PO Q48H 01/09/22 01/22/25 History Alendronate Sodium [Fosamax] 70 mg PO GRISSOM 01/22/25 01/22/25 History Cyanocobalamin (Vitamin B-12) 1,000 mcg PO DAILY 01/22/25 01/22/25 History [Vitamin B-12] Gabapentin [Neurontin] 300 mg PO Q4H 01/22/25 01/22/25 History Allergies Allergy/AdvReac Type Severity Reaction Status Date / Time hydrocodone [From [place]] Allergy Anaphylaxis Verified 01/22/25 07:08 & Rash/Hives meloxicam Allergy Anaphylaxis Verified 01/22/25 07:08 & Rash/Hives Physical Exam Vitals: Vital Signs Temp Pulse Pulse Resp BP BP Pulse Ox 01/22/25 08:00 98.4 F 72 16 112/72 98 01/22/25 06:05 97.9 F 72 17 129/80 92 L 01/22/25 00:50 98.0 F 64 17 130/65 92 L Intake and Output 01/21/25 01/22/25 01/22/25 22:59 06:59 14:59 Other: Voiding Method Toilet # Voids 3 Weight 75.75 kg 75.75 kg Results CBC & Chem 7: 01/22/25 08:52 01/22/25 08:52 Labs: Abnormal Lab Results - Last 24 Hours (Table) 01/22/25 01/22/25 Range/Units 08:52 08:52 WBC 12.66 H (4.50-10.00) 10*3/uL Neutrophils # 8.18 H (1.80-7.70) 10*3/uL Monocytes # 1.37 H (0.20-1.00) 10*3/uL Carbon Dioxide 32 H (22-30) mmol/L BUN 25 H (7-17) mg/dL Glucose 120 H (74-99) mg/dL Thrombosis Risk Factor Assmnt - Choose All That Apply Any of the Below Risk Factors Present?: Yes Each Factor Represents 1 point: Obesity (BMI >25) Other Risk Factors: Yes Each Risk Factor Represents 3 Points: Age 75 years or older Other congenital or acquired thrombophilia - If yes, enter type in comment: No Thrombosis Risk Factor Assessment Total Risk Factor Score: 4 Thrombosis Risk Factor Assessment Level: Moderate Risk
[2025-01-22] MEDS: GABAPENTIN 300 MG CAP PO SCH (14:45)
[2025-01-22] MEDS: ATORVASTATIN 20 MG TAB PO SCH (19:47)
[2025-01-22] MEDS: ZOLPIDEM 5 MG TAB PO SCH (22:04)
[2025-01-23 07:07] VITALS: BP 122/67; PULSE 81; RESP 16; TEMP 98.6
[2025-01-23 08:33] LABS: ALT 12 U/L (8-44); AST 17 U/L (13-35); Albumin 3.5 g/dL (3.8-4.9); Albumin/Globulin Ratio 2.06 Ratio (1.60-3.17); Alkaline Phosphatase 39 U/L (41-126); Blood Urea Nitrogen 13.2 mg/dL (9.0-27.0); Calcium 8.8 mg/dL (8.7-10.3); Carbon Dioxide 27.8 mmol/L (21.6-31.8); Chloride 107 mmol/L (96-109); Globulin 1.7 g/dL (1.6-3.3); Glucose 95 mg/dL (70-110); Magnesium 1.9 mg/dL (1.5-2.4); Phosphorus 3.2 mg/dL (2.4-5.1); Potassium 3.8 mmol/L (3.5-5.5); Sodium 142 mmol/L (135-145); Total Protein 5.2 g/dL (6.2-8.2)
[2025-01-23 08:45] LABS: HCT 36.8 % (37.2-46.3); HGB 13.3 g/dL (12.0-15.0); MCH 35.4 pg (27.0-32.0); MCHC 36.1 g/dL (32.0-37.0); MCV 97.9 FL (80.0-97.0); Mean Platelet Volume 10.7 FL (9.5-12.2); NRBC Per 100 WBC 0 X 10*3/uL (0.00-0.01); Platelet Count 257 X 10*3/uL (140-440); RBC 3.76 X 10*6/uL (4.10-5.20); RDW 12.8 % (11.5-14.5); WBC 8.52 X 10*3/uL (4.50-10.00)
[2025-01-23 08:46] LABS: Basophils # (A) 0.07 X 10*3/uL (0.00-0.10); Basophils % (A) 0.8 %; Eosinophils # (A) 0.16 X 10*3/uL (0.04-0.35); Eosinophils % (A) 1.9 %; Lymphocytes # (A) 2.97 X 10*3/uL (0.90-5.00); Lymphocytes % (A) 34.9 %; Monocytes # (A) 0.81 X 10*3/uL (0.20-1.00); Monocytes % (A) 9.5 %; Neutrophils # (A) 4.48 X 10*3/uL (1.80-7.70); Neutrophils % (A) 52.5 %
--- NOTE | 2025-01-23 10:40 | P.PN ---
Subjective Progress Note Date: 01/23/25 SURGICAL PROGRESS NOTE CHIEF COMPLAINT: Partial small bowel obstruction HISTORY OF PRESENT ILLNESS: Patient's abdominal pain has resolved. She is having a lot of flatus. No bowel movement. Denies any nausea or vomiting. Tolerated the clear liquids. Afebrile. WBC has normalized from 12.6-8.52 Hgb 1 3.3 platelets 257 sodium 142 potassium 3.8 creatinine 0.6 PHYSICAL EXAM: VITAL SIGNS: Reviewed. GENERAL: Well-developed in no acute distress. ABDOMEN: Soft. Nondistended. Nontender. NEUROLOGIC: Alert and oriented. Cranial nerves II through XII grossly intact. ASSESSMENT: 1. Resolving partial small bowel obstruction 2. Prior history of abdominal surgeries. Leading to high risk for bowel obstruction secondary to adhesive disease. PLAN: - Advance diet to regular - Possible discharge home later today if tolerating diet - Encourage patient to ambulate Physician Airfield Engineer Officer note has been reviewed by physician. Signing provider agrees with the documented findings, assessment, and plan of care. Objective - Vital Signs Vital signs: Vital Signs Temp 98.6 F 01/23/25 07:06 Pulse 81 01/23/25 07:06 Resp 16 01/23/25 07:06 BP 122/67 01/23/25 07:06 Pulse Ox 92 L 01/23/25 07:06 FiO2 Intake & Output 01/22/25 01/23/25 01/23/25 18:59 06:59 18:59 Intake Total 360 Balance 360 Weight 75.75 kg Intake: Oral 360 Other: Voiding Method Toilet Toilet # Voids 3 3 - Labs CBC & Chem 7: 01/23/25 03:08 01/23/25 03:08 Labs: Abnormal Lab Results - Last 24 Hours (Table) 01/23/25 01/23/25 Range/Units 03:08 03:08 RBC 3.76 L (4.10-5.20) X 10*6/uL Hct 36.8 L (37.2-46.3) % MCV 97.9 H (80.0-97.0) FL MCH 35.4 H (27.0-32.0) pg BUN/Creatinine Ratio 22.00 H (12.00-20.00) Ratio Alkaline Phosphatase 39 L (41-126) U/L Total Protein 5.2 L (6.2-8.2) g/dL Albumin 3.5 L (3.8-4.9) g/dL
--- NOTE | 2025-01-23 13:23 | P.DS ---
Providers Date of admission: 01/22/25 01:39 Attending physician: Melissa Maier Consults: 01/22/25 01:37 Consult Physician Routine Consulting Provider: Edmund Nascimento Consult Reason/Comments: sbo Do you want consulting provider notified?: Yes Primary care physician: Stated None Hospital Course: 69-year-old female came in with complaints of abdominal pain was transferred from [facility] for small bowel obstruction which was evident on the CT scan with transition point in the right lower quadrant. Patient presently is doing well passing gas patient was started on liquid diet patient is receiving IV fluids at 75 cc/h blood pressure is low normal. 01/23/2025 Patient is tolerating diet well and will be discharged today PHYSICAL EXAMINATION: GENERAL: The patient is alert and oriented x3, not in any acute distress. Well developed, well nourished. HEENT: Pupils are round and equally reacting to light. EOMI. No scleral icterus. No conjunctival pallor. Normocephalic, atraumatic. No pharyngeal erythema. No thyromegaly. CARDIOVASCULAR: S1 and S2 present. No murmurs, rubs, or gallops. PULMONARY: Chest is clear to auscultation, no wheezing or crackles. ABDOMEN: Soft, nontender, nondistended, normoactive bowel sounds. No palpable organomegaly. MUSCULOSKELETAL: No joint swelling or deformity. EXTREMITIES: No cyanosis, clubbing, or pedal edema. NEUROLOGICAL: Gross neurological examination did not reveal any focal deficits. SKIN: No rashes. Assessment and plan -Partial small bowel obstruction improved with conservative measures able to tolerate regular diet well and will be discharged today - Hypertension patient blood pressure is low normal on admission and did not require hydrochlorothiazide despite of which her blood pressure remained within normal limits hydrochlorothiazide will be discontinued and patient was asked to check the blood pressure at home and take it to PCP to reassess the need for antihypertensive medications - Leukocytosis reactive secondary to partial small bowel obstruction, resolved at this time - Hyperlipidemia continue with simvastatin - Peripheral neuropathy Patient Condition at Discharge: Fair Plan - Discharge Summary New Discharge Prescriptions: Discontinued hydroCHLOROthiazide [Hydrodiuril] 25 mg PO Q48H No Action Simvastatin [Zocor] 40 mg PO HS Cholecalciferol [Vitamin D3 (25 Mcg = 1000 Iu)] 50 mcg PO DAILY Calcium/Magnesium(Unknown) 1 tab PO DAILY Gabapentin [Neurontin] 300 mg PO Q4H Zolpidem [Ambien] 10 mg PO HS Omeprazole 40 mg PO DAILY Alendronate Sodium [Fosamax] 70 mg PO GRISSOM Cyanocobalamin (Vitamin B-12) [Vitamin B-12] 1,000 mcg PO DAILY Discharge Medication List Calcium/Magnesium(Unknown) 1 tab PO DAILY 01/09/22 [History] Cholecalciferol [Vitamin D3 (25 Mcg = 1000 Iu)] 50 mcg PO DAILY 01/09/22 [History] Omeprazole 40 mg PO DAILY 01/09/22 [History] Simvastatin [Zocor] 40 mg PO HS 01/09/22 [History] Zolpidem [Ambien] 10 mg PO HS 01/09/22 [History] Alendronate Sodium [Fosamax] 70 mg PO GRISSOM 01/22/25 [History] Cyanocobalamin (Vitamin B-12) [Vitamin B-12] 1,000 mcg PO DAILY 01/22/25 [History] Gabapentin [Neurontin] 300 mg PO Q4H 01/22/25 [History] Follow up Appointment(s)/Referral(s): Lorna Thomas FNPBC [REFERRING] - 3 Days (Office not answering please call to schedule appointment ) Discharge Disposition: HOME SELF-CARE
== END 2025-01-23 13:46 | disposition home or self-care (01) ==
LOC: EC 00:48 → INTOOBSV 01:39 → 4SSUR 01:39
PROVIDERS: ADMIT Hospitalist; ATTEND Hospitalist
DX: K56.600 Partial intestinal obstruction, unspecified as to cause (principal); I10 Essential (primary) hypertension; D72.829 Elevated white blood cell count, unspecified; R51.9 Headache, unspecified; K58.9 Irritable bowel syndrome, unspecified; K21.9 Gastro-esophageal reflux disease without esophagitis; E78.5 Hyperlipidemia, unspecified; E11.40 Type 2 diabetes mellitus with diabetic neuropathy, unspecified; F17.200 Nicotine dependence, unspecified, uncomplicated; F41.9 Anxiety disorder, unspecified; G47.00 Insomnia, unspecified; Z86.0100 Personal history of colon polyps, unspecified; Z87.442 Personal history of urinary calculi; Z90.710 Acquired absence of both cervix and uterus; Z88.5 Allergy status to narcotic agent; Z88.6 Allergy status to analgesic agent; Z79.83 Long term (current) use of bisphosphonates; Z79.899 Other long term (current) drug therapy
CPT/HCPCS: 96376 ×2; 96375 ×2; 96374; 99284; 80053; 80048; 83735; 84100; 85025 ×2; G0378 ×2; J2405; J1171; J2470 ×2; 96361; 99285